=== PATIENT | female | born 1995 | race Hispanic/Latino ===

== ENCOUNTER 2018-05-12 05:30 | Inpatient (IN) | payer OTHER ==
[2018-05-12 09:24] VITALS: BMI 27.2
[2018-05-12] MEDS ORDERED: NS w/ Oxytocin 10 units 500 ML ONE (09:34)
--- NOTE | 2018-05-12 09:58 | PDOC.FPROB ---
FMR OB H&P: HPI - History of Present Illness Chief Complaint: IOL past dates History of Present Illness: This is a 22 yo F @ 40.5wks by LMP/1T US, presenting for IOL past dates. has been complicated by positive chlamydia on 11/19/17, followed by BRANDEE on 01/03/18. She states she feels some pressure but denies vaginal bleeding or LOF. She notes some mucus discharge. She has +FM. She endorses a mild headache that is intermittent. She denies fever, vision changes, abdominal pain , SOB, chest pain, or increased LE swelling. Primary Care Physician: PCP: Dr. Madalyn Spann at [facility] FMR OB H&P: Current - Care : 2 Para: 1 Gestational age: 40.5 Due date: 05/07/18 Dating Criteria: LMP/9 wk sono Course/Complications: chlamydia pos on 11/19/17 followed by BRANDEE on 01/03/18 - OB Labs Blood type: O RH: positive Antibody Screen: negative HIV: negative RPR: negative HepBsAg: negative Rubella: immune Urine drug screen: negative Gonorrhea: negative Chlamydia: negative (BRANDEE on 01/03/18) GBS: negative FMR OB H&P: History - OB History OB History: Previous - , no complications; chlamydia pos 11/19/17, with BRANDEE 01/03/18 - Social History Social History: denies tobacco, drinking or drug use FMR OB H&P: Medications - Current Home Medications: Medication Instructions Recorded Confirmed Type Vitamin 1 tablet PO DAILY 05/23/14 05/12/18 History Docusate Calcium [Surfak] 240 mg PO BID 05/12/18 05/12/18 History Allergies/Adverse Reactions: Allergies Allergy/AdvReac Type Severity Reaction Status Date / Time iodine Allergy Mild Rash Verified 05/12/18 08:59 FMR OB H&P: ROS - Review of Systems General: denies: fever/chills, weight/appetite/sleep changes, night sweats, fatigue Eyes: denies: eye pain, vision changes, double vision, scotomas, floaters ENT: denies: nasal congestion, rhinorrhea Cardiovascular: denies: chest pain, palpitation, edema Respiratory: denies: cough, congestion, shortness of breath Gastrointestinal: denies: abdominal pain, indigestion, bloating, cramping, nausea, vomiting Genitourinary (Female): reports: vaginal discharge (mucus discharge), vaginal pressure. denies: incontinence, dysuria, hematuria, vaginal pain, vaginal bleeding, contractions Musculoskeletal: denies: pain, stiffness, tenderness Neurologic: denies: numbness, syncope Integumentary: denies: itching Psychological: denies: depression, anxiety FMR OB H&P: Vital Signs - Heart Tones Baseline: 150 Variability: moderate Acceleration: present Deceleration: absent Category: category 1 [place] contractions every: every 7-10 min FMR OB H&P: Physical Exam - Physical Exam General: NAD, awake, alert and oriented HEENT: normocephalic and atraumatic, PERRLA, EOMI, MMM Neck: supple, FROM Chest: non-tender to palpation Heart: RRR, normal S1/S2, no murmurs/rubs/gallops, pulses present General: CTAB, no respiratory distress, good air movement Abdomen: gravid, non-tender Musculoskeletal: pulses present, FROM in all four extremities Skin: no rash, good tugor FMR OB H&P: A/P - Problem List (1) Intrauterine Current Visit: Yes Status: Acute Code(s): Z34.90 - ENCNTR FOR SUPRVSN OF NORMAL , UNSP, UNSP TRIMESTER Disposition: 22 yo at 40.5wks by 1TUS/LMP here for IOL past dates IUP, IOL past dates - Admit to L&D for IOL; expectant management - Check at 1015: /-1, will recheck in 2-4 hours - FHT reassuring, cat 1 - Will give LR @ 125 - Will start Pitocin for IOL - Will monitor VS Hx of Chlamydia during - BRANDEE on 01/03/[address] Pablo Discussion: Date/Time: 05/12/18 8243 This H&P was discussed with [] and [] who agree with the above documentation and plan. Attending Addendum - Attending Addendum Date/Time: 05/12/18 105 I personally evaluated the patient and discussed the management with Dr. Su. I agree with the History, Examination, Assessment and Plan documented above with any addition or exceptions noted below- 22 yo @40.5 weeks admitted for induction. Feeling occasional contractions. (+) FM. Afebrile VSS A/P: IUP @ 40.5 weeks- SVE /-/soft ([place]=8). Category 1 FHTs. GBS negative. Will start pitocin and monitor progress.
[2018-05-12] MEDS: NS w/ Oxytocin 10 units 500 ML IV SCH (10:16)
[2018-05-12] MEDS ORDERED: Ondansetron HCl/PF 4 MG/2 ML Vial IVP PRN (10:24)
[2018-05-12] MEDS ORDERED: Promethazine HCl 25 MG/ML VIAL IM PRN (10:24)
[2018-05-12] MEDS ORDERED: Lidocaine 1% (PF) 30 ML VIAL SC PRN (10:27)
[2018-05-12] MEDS ORDERED: NS / Oxytocin 40 units/1000ml 1,000 ML IV PRN (10:27)
[2018-05-12] MEDS ORDERED: Ibuprofen 800 MG TAB PO PRN (10:27)
[2018-05-12] MEDS ORDERED: Misoprostol 200 MCG TAB PR PRN (10:27)
[2018-05-12] MEDS ORDERED: Lactated Ringer's 1,000 ML IV SCH (10:30)
[2018-05-12] MEDS ORDERED: NS w/ Oxytocin 10 units 500 ML IV SCH (10:30)
[2018-05-12 10:38] LABS: Hemoglobin 11.6 g/dL (12.0-16.0); Mean Corpuscular Hemoglobin 31.4 pg (27.0-31.0); Mean Corpuscular Volume 89.7 fL (78.0-98.0); Mean Platelet Volume 9.9 fL (7.4-10.4); Platelet Count 130 thou/uL (130-400); RBC Distribution Width 12.5 % (11.5-14.5)
[2018-05-12 11:13] LABS: HBSAg Index 0.23 S/CO (0-0.99); Hep B Surf Ag Non-Reactive S/CO (NonReactive); Syphilis Antibody Nonreactive (Nonreactive); Syphilis Antibody Index 0.04 S/CO (<1.00 Non-Reactive)
[2018-05-12] MEDS ORDERED: Acetaminophen 500 MG TAB PO PRN (11:38)
--- NOTE | 2018-05-12 12:38 | PDOC.LDPN ---
Labor & Delivery Progress Note - Subjective Subjective: comfortable, no concerns - Objective Vital signs reviewed and normal: yes General: NAD, resting, breathing through contractions Uterine fundus: non tender Dilation: 2 Effacement: 75% Station: -1 FHT: category 2, variable decelerations, variability present [place] contractions every: every 3-5 min Resuscitative measures: maternal IV fluids - Assessment (1) Intrauterine Code(s): Z34.90 - ENCNTR FOR SUPRVSN OF NORMAL , UNSP, UNSP TRIMESTER Current Visit: Yes Status: Acute Plan: continue plan of care, pitocin for augmentation -: 22 yo at 40.5wks by 1TUS/LMP here for IOL past dates IUP, IOL past dates - Continue expectant management - Check at 1230: 2/80/-1, will recheck in 2-4 hours - FHT reassuring, cat 2; one variable decel present; +FM - Will continue LR @ 125 - On Pitocin for IOL - Will monitor VS Hx of Chlamydia during - BRANDEE on 01/03/[address] Pablo
[2018-05-12] MEDS ORDERED: Butorphanol Tartrate 1 MG/ML VIAL ONE (14:37)
[2018-05-12] MEDS ORDERED: Butorphanol Tartrate 1 MG/ML VIAL SLOW IVP PRN (14:50)
--- NOTE | 2018-05-12 14:57 | PDOC.LDPN ---
Labor & Delivery Progress Note - Subjective Subjective: painful contractions, vaginal pressure - Objective Vital signs reviewed and normal: yes General: breathing through contractions Uterine fundus: non tender Dilation: 9 Effacement: 90% Station: 1+ FHT: category 2, variable decelerations [place] contractions every: every 2-3 min AROM: clear fluid Resuscitative measures: maternal IV fluids - Assessment (1) Intrauterine Code(s): Z34.90 - ENCNTR FOR SUPRVSN OF NORMAL , UNSP, UNSP TRIMESTER Current Visit: Yes Status: Acute Plan: continue plan of care, pitocin for augmentation -: 22 yo at 40.5wks by 1TUS/LMP here for IOL past dates IUP, IOL past dates - Continue expectant management - Check at 1500: /+1 - FHT reassuring, cat 2; occasional variable decel present; +FM - Will continue LR @ 125 - On Pitocin for IOL - Will monitor VS - We will recheck in 20 min Hx of Chlamydia during - BRANDEE on 01/03/[address] Pablo
--- NOTE | 2018-05-12 16:26 | PDOC.OPDEL ---
OB Operative/Delivery Note Delivery Dr/Surgeon: Bev Su Messer Pre-Delivery Diagnosis: medically indicated induction Procedure/Post Delivery Dx: spontaneous vaginal delivery Weeks gestation: 40 (40.5) Anesthesia: none - Additional Findings/Plan Placenta delivered: spontaneous Repaired Obstetrical Laceration: vaginal Estimated blood loss: 251mL Compilations/Other Findings: This is a 22 y/o F @ 41.5 weeks who delivered a viable M at 1534. Following an uneventful antepartum course, a vigorous male was delivered over an intact perineum in the OA position. Anterior shoulder and then the remainder of the body delivered. No nuchal cord. The head held down and mouth and nares were bulb-suctioned. Cord clamped after delay and cutand cord blood collected. Placenta delivered intact with a three-vessel cord noted. Fundal massage was performed and the fundus was firm. The cervix and vagina were inspected and found to have a 2nd degree laceration. Repaired with 2.0 Vicryl in the usual fashion with good approximation and hemostasis after a local anesthetic was injected at the site. Infant placed with mother for [id number] contact. APGARs were 9/9 at 1 minutes/5 minutes, respectively. Patient tolerated delivery well and will be going to after routine recovery / care. Post delivery plan: routine recovery <Lashawn Su - Last Filed: 05/12/18 16:49> - Additional Findings/Plan Repaired Obstetrical Laceration: 2nd degree <Lina Pablo - Last Filed: 05/12/18 22:40> Attending Addendum - Attending Addendum Date/Time: 05/12/182236 I was present ans assisted with the of a viable male over an intact perineum by Dr. Su. Apgars 9/9. 2* perineal laceration repaired in usual fashion with 2-0 vicryl. GUC=417 mL. and mother in stable condition. <Lina Pablo - Last Filed: 05/12/18 22:40>
[2018-05-12] MEDS ORDERED: Benzocaine/Menthol 20-0.5% 60 ML CAN TOP SCH (16:32)
[2018-05-12] MEDS ORDERED: Milk Of Magnesia 30 ML UDCUP PO PRN (16:32)
[2018-05-12] MEDS ORDERED: Preparation H Ointment 28 GM TUBE PR PRN (16:32)
[2018-05-12] MEDS ORDERED: NS / Oxytocin 40 units/1000ml 1,000 ML IV SCH (16:32)
[2018-05-12] MEDS ORDERED: Bisacodyl 10 MG SUPP PR PRN (16:32)
[2018-05-12] MEDS: Ferrous Sulfate 325 MG TAB PO SCH (18:37)
[2018-05-12] MEDS: Docusate Calcium (SURFAK) 240 MG CAP PO SCH (21:07)
[2018-05-12] MEDS: Ibuprofen 800 MG TAB PO SCH (23:41)
[2018-05-13] MEDS: Ibuprofen 800 MG TAB PO SCH ×2 (06:26→13:58)
--- NOTE | 2018-05-13 08:24 | PDOC.PP ---
Post Progress Note Post Day #: 1 Subjective: Patient is -->2 delivered SAIGE Mayorga yesterday at 1534 with a 2nd degree perineal laceration, repaired. PP day #1, doing well. Is up moving around, tolerating diet, toileting, and reports pain is well controlled with ibuprofen. Lochia wnl as reported by patient and nursing staff. She is struggling to breastfeed, latching well, but no milk production. She is also pumping without success. PO intake tolerated: yes Flatus: yes Ambulation: yes Vital Signs (12 hours) Temp Pulse Resp BP 05/13/18 05:30 97.9 F 64 18 101/59 L 05/13/18 00:00 98.1 F 67 20 112/53 L 05/12/18 22:45 98.1 F 67 20 Weight Weight 76.657 kg - Physical Examination General: NAD Cardiovascular: no m/r/g, RRR Respiratory: clear to auscultation bilaterally, non-labored breathing Abdominal: + bowel sounds, lochia, no distention, appropriately TTP Fundus firm & at: 1+ umbilicus Extremities: negative homans (B) Neurological: no gross focal deficits Psychiatric: A&Ox3, normal affect Result Diagrams: 05/12/18 09:42 Additional Labs: Post Labs Blood Type O POSITIVE 05/12/18 09:42 Hep Bs Antigen Non-Reactive S/CO (NonReactive) 05/12/18 09:42 (1) Normal vaginal delivery Code(s): O80 - ENCOUNTER FOR FULL-TERM UNCOMPLICATED DELIVERY Status: Acute - Assessment/Plan Patient is -->2 delivered SAIGE Mayorga yesterday at 1534 with a 2nd degree perineal laceration, repaired. PP day #1, doing well. F/u later this afternoon to discuss 24 vs 36h discharge, patient currently undecided. Continue routine PP care. <Madalyn Spann - Last Filed: 05/13/18 08:22> Vital Signs (12 hours) Temp Pulse Resp BP 05/13/18 08:00 98.2 F 65 18 92/51 L 05/13/18 05:30 97.9 F 64 18 101/59 L 05/13/18 00:00 98.1 F 67 20 112/53 L Weight Weight 76.657 kg Result Diagrams: 05/12/18 09:42 Additional Labs: Post Labs Blood Type O POSITIVE 05/12/18 09:42 Hep Bs Antigen Non-Reactive S/CO (NonReactive) 05/12/18 09:42 (1) Intrauterine Code(s): Z34.90 - ENCNTR FOR SUPRVSN OF NORMAL , UNSP, UNSP TRIMESTER Status: Acute <Lina Pablo - Last Filed: 05/13/18 11:01> Attending Addendum - Attending Addendum Date/Time: 05/13/18 1100 I personally evaluated the patient and discussed the management with Dr. Spann I agree with the History, Examination, Assessment and Plan documented above with any addition or exceptions noted below- Patient complaining of some nausea this morning. Afebrile VSS. A/P: 1) PPD#1 s/p - contonue to monitor; possibly d/c home later today. . <Lina Pablo - Last Filed: 05/13/18 11:01>
[2018-05-13] MEDS ORDERED: Adacel (T-DAP) 0.5 ML VIAL IM ONE (09:00)
[2018-05-13] MEDS: Docusate Calcium (SURFAK) 240 MG CAP PO SCH (09:13)
[2018-05-13] MEDS: Ferrous Sulfate 325 MG TAB PO SCH ×2 (09:15→18:29)
[2018-05-13] MEDS: NS w/ Oxytocin 10 units 500 ML IV SCH (13:58)
[2018-05-13 14:18] VITALS: BP 103/59; TEMP 98.6
== END 2018-05-13 18:09 | disposition home or self-care (01) | DRG 775 ==
LOC: L&D 08:35 → 3SE 18:28
PROVIDERS: ADMIT Family Medicine; ATTEND Family Medicine
PROC: 10E0XZZ Delivery of Products of Conception, External Approach (ICD-10-PCS; principal; 2018-05-12)
PROC: 0KQM0ZZ Repair Perineum Muscle, Open Approach (ICD-10-PCS; 2018-05-12)
PROC: 3E033VJ Introduction of Other Hormone into Peripheral Vein, Percutaneous Approach (ICD-10-PCS; 2018-05-12)
DX: O48.0 Post-term pregnancy (principal); Z3A.40 40 weeks gestation of pregnancy; Z37.0 Single live birth; O70.1 Second degree perineal laceration during delivery; O76 Abnormality in fetal heart rate and rhythm complicating labor and delivery
CPT/HCPCS: 85027; 86780; 86850; 86900; 86901; 87340; J0595; J2001